=== PATIENT | female | born 1975 | race Caucasian/White ===

== ENCOUNTER 2022-02-03 18:41 | Outpatient (REF) | payer OTHER, SELFPAY ==
[2022-02-03 14:02] LABS: Abs Immature Grans 0.09 10^3/uL (0.0-0.06); Absolute Basophil Count 0.05 10^3/uL (0.0-0.2); Absolute Eosinophil Count 0.12 10^3/uL (0.0-0.7); Absolute Lymphocyte Count 2.86 10^3/uL (1.2-3.4); Absolute Monocyte Count 0.65 10^3/uL (0.1-0.8); Basophils % 0.4; Eosinophils % 1.1; HCT 40.8 % (36.0-46.0); HGB 13.9 g/dL (11.2-15.7); Immature Grans % 0.8; Lymphocytes % 25.2; MCH 30.5 pg (27.0-33.0); MCHC 34.1 % (32.0-36.0); MCV 90 fL (80-95); MPV 9.4 fL (8.0-11.0); Monocytes % 5.7; Neutrophils % 66.8; Platelet Count 288 10^3/uL (130-400); RBC 4.55 10^6/uL (3.93-5.22); RDW 11.9 % (11.7-14.6); RDW-SD 38.4 fL; WBC 11.33 10^3/uL (4.4-10.8)
[2022-02-03 14:05] LABS: Absolute Neutrophil Count 7.57 10^3/uL (1.2-6.7)
[2022-02-03 14:24] LABS: ALT 35 U/L (14-59); AST 21 U/L (15-37); Albumin 4.2 g/dL (3.4-5.0); Alkaline Phosphatase 54 U/L (46-116); Anion Gap 8.9 mmol/L (3-11); BUN 13 mg/dL (7-18); Bilirubin, Total 0.5 mg/dL (0.2-1.0); CO2 27.1 mmol/L (21.0-32.0); CREATININE 0.9 mg/dL (0.55-1.02); Calcium 8.9 mg/dL (8.5-10.1); Calculated LDL 132 mg/dL (<100); Chloride 106 mmol/L (98-107); Cholesterol 200 mg/dL (<200); Glucose 89 mg/dL (74-106); HDL Cholesterol 38 mg/dL (40-60); Potassium 4.2 mmol/L (3.5-5.1); Sodium 142 mmol/L (136-145); TSH (W/Ref FT4) 1.44 uIU/mL (0.36-3.74); Total Protein 7.2 g/dL (6.4-8.2); Triglyceride 151 mg/dL (<150)
== END 2022-02-03 18:42 | disposition home or self-care (01) ==
LOC: NCHCN 18:41
PROVIDERS: PCP Nurse Practitioner Family; Visit Provider Nurse Practitioner Family
DX: Z00.00 Encounter for general adult medical examination without abnormal findings (principal); F33.1 Major depressive disorder, recurrent, moderate; R53.82 Chronic fatigue, unspecified; Z13.220 Encounter for screening for lipoid disorders
CPT/HCPCS: 80053; 80061; 84443; 85025

== ENCOUNTER 2022-08-09 06:10 | Day surgery (SDC) | payer OTHER, SELFPAY ==
[2022-08-09 06:21] VITALS: BP 116/74; PULSE 85; RESP 16; TEMP 36.6; O2SAT 100
--- NOTE | 2022-08-09 07:23 | W.PM.DSUDISC ---
Date of service: 08/09/22 Time of Service: 10:00 Discharge Plan Disposition Patient Disposition: HOME Condition: Good Discharge Details Reason For Visit: Right Trigger Thumb Release Attending Provider: Elian Jacobo Primary Care Provider: CARMEN HORN Home Meds and New Rx's Prescriptions: New hydrocodone-acetaminophen 5-325 mg tablet 1 tab PO Q6H PRNQty: 5 0RF ibuprofen 600 mg tablet 600 mg PO TID Qty: 20 0RF acetaminophen 500 mg capsule 1,000 mg PO Q8H PRN PRNQty: 20 0RF Continued bupropion HCl [Wellbutrin XL] 300 mg tablet extended release 24 hr 300 mg PO QAM vitamin B complex Capsule 2 cap PO DAILY metoprolol succinate 25 mg tablet extended release 24 hr 25 mg PO QPM cholecalciferol (vitamin D3) 50 mcg (2,000 unit) capsule 50 mcg PO DAILY methylphenidate HCl [Concerta] 54 mg tablet extended release 24hr 54 mg PO QAM alprazolam [Xanax] 1 mg tablet 1 mg PO DAILY PRN pantoprazole 40 mg tablet,delayed release (DR/EC) 40 mg PO DAILY lamotrigine 150 mg tablet 150 mg PO QAM levonorgestrel-ethinyl estrad 0.15-0.03 mg tablet 1 tab PO DAILY Qty: 84 5RF lamotrigine 25 mg tablet 50 mg PO QAM Label Comments: Take in addition to 150mg dose for a total of 200mg daily. Discharge Instructions Stand Alone Forms: Ary Pimentel (KEELY) Activity:: Activity as Tolerated Remove Dressings/Wound Care:: 72 hours Shower/Bathe:: 72 hours Diet:: As Tolerated Discharge Orders Discharge Orders: Discharge Order (Routine); Ordered 08/09/22 Ordered By: Irma Richter Discharge Data Discharge Date/Time-TO BE ENTERED AT DEPARTURE: 08/09/22 08:05 Discharge Comment: pt d/c from [facility] DS: Diagnosis Discharge Diagnosis (1) Trigger finger of right thumb: Status: Acute
[2022-08-09] MEDS: Sodium Bicarbonate 50 MEQ/50 ML VIAL (07:39)
[2022-08-09 07:47] VITALS: BP 140/68; PULSE 84; RESP 16; TEMP 36; O2SAT 99
--- NOTE | 2022-08-09 20:40 | W.PM.OP ---
Date of service: 08/09/22 Time of Service: 07:40 Operative Note Operative Note DATE OF PROCEDURE: 08/09/22 PRE-OP DIAGNOSIS: Right Trigger Thumb POST-OP DIAGNOSIS: same PROCEDURE: Trigger Finger Release - Right Thumb SURGEON: Elian Jacobo ANESTHESIA TYPE: Local By Surgeon Refer to Anesthesia Record ESTIMATED BLOOD LOSS: 0 PATHOLOGY: none sent COMPLICATIONS: None Patient was transported to: same day Patient's condition: stable Indications: I have seen Chantelle in clinic for symptoms of a trigger finger. The catching, clicking, locking, and pain limited function. The diagnosis of trigger finger was evident. The symptoms had not responded to conservative measures including an injection. I discussed trigger finger release with the patient. I reviewed the risks of the procedure to include, but not limited to, bleeding, infection, pain, stiffness, incomplete release, damage to nerves or vessels, continued catching, recurrence. Despite these risks, the patient elected to proceed. Findings: There was a tightened A1 philip which was released. The flexor tendons were inspected and the patient was able to move the finger without any catching, clicking, or locking. Procedure Description: Chantelle was greeted in the preoperative holding area where the correct side was identified and marked. The consent was reviewed with the patient and signed. All questions were answered. She was taken back to the operating room. The patient was placed into the supine position on the operating room table with the right arm on an arm board. All bony prominences were well padded. No prophylactic antibiotics were administered since this was a clean, elective hand surgical case. The right arm was then prepped with Chloraprep and draped in a standard fashion with stockinette and extremity drape. A timeout to confirm correct identity, side and site, procedure, allergies, anesthesia, and medical concerns was performed. The surgical site was marked as a longitudinal incision directly over the A1 philip of the involved digit. This was confirmed with palpation during finger flexion. This area, overlying the metacarpal head, was then anesthetized with 1% Lidocaine. The patient tolerated this well and once the anesthetic had setup, the procedure began. A longitudinal incision was made through skin only, approximately 1cm. The deep tissues were dissected bluntly. Once the A1 philip and flexor tendons were identified the soft tissue including neurovascular structures were retracted medially and laterally. There were no crossing structures over the A1 philip. The proximal edge of the philip was identified and the philip was incised with tenotomy scissors. There was a release of the tendons once this was fully released. The tendons were then removed from the wound and inspected. Excess synovium was resected. The tendons were then returned and the patient was asked to move the finger into deep flexion and back to extension. There was no recreation of the pre-operative symptoms. The hand was then once more inspected for any A0 philip or area of possible constriction. The wound was then irrigated and the skin was closed with a 4-0 Nylon. This was dressed with gauze and a Conform dressing. The patient tolerated the procedure well and was returned to the Same Day Surgery area in a stable condition suffering no known complication.
== END 2022-08-09 08:05 | disposition home or self-care (01) ==
PROVIDERS: PCP Nurse Practitioner Family; Visit Provider Student in an Organized Health Care Education/Training Program
PROC: (CPT 26055; principal; 2022-08-09 07:30)
DX: M65.311 Trigger thumb, right thumb (principal)
CPT/HCPCS: 26055

== ENCOUNTER 2023-03-20 21:37 | Outpatient (REF) | payer OTHER, SELFPAY ==
[2023-03-20 20:32] LABS: Abs Immature Grans 0.07 10^3/uL (0.0-0.06); Absolute Basophil Count 0.07 10^3/uL (0.0-0.2); Absolute Lymphocyte Count 3.53 10^3/uL (1.2-3.4); Absolute Neutrophil Count 9.84 10^3/uL (1.2-6.7); Basophils % 0.5; Eosinophils % 0.8; HCT 39.5 % (36.0-46.0); HGB 13.5 g/dL (11.2-15.7); Immature Grans % 0.5; Lymphocytes % 24.7; MCHC 34.2 % (32.0-36.0); MCV 88 fL (80-95); MPV 9.6 fL (8.0-11.0); Monocytes % 4.6; Neutrophils % 68.9; Platelet Count 344 10^3/uL (130-400); RDW 11.8 % (11.7-14.6); RDW-SD 37.5 fL; WBC 14.28 10^3/uL (4.4-10.8)
[2023-03-20 20:35] LABS: Absolute Eosinophil Count 0.11 10^3/uL (0.0-0.7); Absolute Monocyte Count 0.66 10^3/uL (0.1-0.8)
[2023-03-20 21:06] LABS: Vitamin D 25 Total 93.1 ng/mL (30-100)
[2023-03-20 21:07] LABS: ALT 44 U/L (14-59); AST 23 U/L (15-37); Alkaline Phosphatase 45 U/L (46-116); Anion Gap 7.6 mmol/L (3-11); BUN 14 mg/dL (7-18); Bilirubin, Total 0.1 mg/dL (0.2-1.0); CO2 26.4 mmol/L (21.0-32.0); CREATININE 0.9 mg/dL (0.55-1.02); Calcium 8.9 mg/dL (8.5-10.1); Calculated LDL 111 mg/dL (<100); Chloride 107 mmol/L (98-107); Cholesterol 181 mg/dL (<200); Estimated GFR 79.35 (mL/min/1.73m2); Glucose 89 mg/dL (74-106); HDL Cholesterol 31 mg/dL (40-60); Sodium 141 mmol/L (136-145); Total Protein 7.2 g/dL (6.4-8.2); Triglyceride 197 mg/dL (<150); Vitamin B12 399 pg/mL (193-986)
== END 2023-03-20 21:38 | disposition home or self-care (01) ==
LOC: NCHCN 21:37
PROVIDERS: PCP Nurse Practitioner Family; Visit Provider Nurse Practitioner Family
DX: F90.9 Attention-deficit hyperactivity disorder, unspecified type (principal); F33.1 Major depressive disorder, recurrent, moderate; E78.5 Hyperlipidemia, unspecified; R53.82 Chronic fatigue, unspecified
CPT/HCPCS: 80053; 80061; 82306; 82607; 85025

== ENCOUNTER 2023-09-06 13:38 | Outpatient (REF) | payer OTHER, SELFPAY ==
--- NOTE | 2023-09-06 13:30 | SKI_PTH ---
PATIENT: Chantelle Leal LOC: [facility] U#:[id number] AGE/SX: 48/F ROOM: RE09/06/[address]: Benjamin Lopez MD : 1975 BED: DIS: 09/06/2023 SPEC #: [id number] RECD: 09/06/23 17:12 STATUS: AMINA RE #: [id number] ROWAN: 09/06/23 13:[address]: Benjamin Lopez DEPT: Surgical Specimen RECD BY: Regina Camarena ENTERED: 09/06/23 17:13 SP TYPE: ONESIMO JETT DR: CARMEN HORN, CHILO Tissues: 1 - SKIN BIOPSY(SHAVE/PUNCH) Procedures: IMMUNOPEROXIDASE STAIN SKIN LEVEL 4 Comments: [id number]
== END 2023-09-06 13:39 | disposition home or self-care (01) ==
LOC: LBN 13:38
PROVIDERS: PCP Nurse Practitioner Family; Visit Provider Surgery
DX: D22.39 Melanocytic nevi of other parts of face
CPT/HCPCS: 88305; 88361

== ENCOUNTER → 2023-12-04 01:41 | Outpatient (CLI) | payer OTHER, SELFPAY ==
--- NOTE | 2023-12-04 | DI.MAMMO_ITS ---
Exam(s) MAMMO SCREENING EXAM: MAMMO SCREENING CLINICAL HISTORY: Z12.39 Encounter for other screening for malig neop of breast TECHNIQUE: Bilateral full field digital CC and MLO mammographic images were obtained with 3D tomosyn thesis and utilizing computer aided detection (CAD). COMPARISON: Available for comparison. FINDINGS: Masses/Architectural Distortion: There is a stable nodule which is seen in the posterior aspect of th e right breast on the CC view and inferior posterior aspect aspect on the MLO view. No new nodules a re seen. There are no areas of architectural distortion. Microcalcifications: No suspicious pleomorphic-type are seen. Skin Thickening/Nipple Retraction: None. IMPRESSION: 1. No significant interval change with no specific features of malignancy noted. 2. Unless there is more urgent need, screening mammography is recommended, as per [employer] guidelines. BI-RADS Category 2 - Benign Findings Breast Density - Category B - Scattered areas of fibroglandular density Breast density category C or D implies that the patient has dense breast tissue. Dense breast tissue is very common and is not abnormal but dense breast tissue can make it harder to find cancer on a ma mmogram. Also, dense breast tissue may increase their breast cancer risk. This information about the result of the mammogram report was provided to the patient to raise their awareness. Use this report when you speak with the patient about their risks for breast cancer, which includes their family hist ory. At that time, you may recommend for more screening tests (Ultrasound or MRI) as they might be us eful based on their risk. A negative radiographic report should not delay biopsy if a dominant or clinically suspicious mass is present. Up to ten percent of cancers are not identified on mammography. A negative report may reinforce clinical impression. Adenosis and dense breasts may obscure an underlying neoplasm. False positive reports average 6 to 10%. Patient will receive a letter notifying them of these results.
== END ==
PROVIDERS: PCP Nurse Practitioner Family; Visit Provider Nurse Practitioner Family
DX: Z12.31 Encounter for screening mammogram for malignant neoplasm of breast (principal)
CPT/HCPCS: 77063; 77067

== ENCOUNTER 2024-02-08 07:41 | Day surgery (SDC) | payer OTHER, SELFPAY ==
--- NOTE | 2024-02-07 17:05 | PDOC.DSDIS_ITS ---
Date of service: 02/08/24 Time of Service: 09:21 Discharge Plan Disposition Patient Disposition: Home Condition: Good Discharge Details Reason For Visit: Hemorrhoid banding Attending Provider: Benjamin Lopez Primary Care Provider: Arcadio Molina Home Meds and New Rx's Prescriptions: Continued sertraline 100 mg tablet 100 mg PO DAILY lidocaine 5 % adhesive patch,medicated 1 patch topical Q24H Qty: 30 1RF Rx Instructions: leave on most painful area for up to 12 hrs lisdexamfetamine [Vyvanse] 30 mg capsule 30 mg PO QAM bupropion HCl [Wellbutrin XL] 300 mg tablet extended release 24 hr 300 mg PO QAM vitamin B complex Capsule 2 cap PO DAILY metoprolol succinate 25 mg tablet extended release 24 hr 25 mg PO DAILY cholecalciferol (vitamin D3) 50 mcg (2,000 unit) capsule 50 mcg PO DAILY alprazolam [Xanax] 1 mg tablet 1 mg PO DAILY PRN pantoprazole 40 mg tablet,delayed release (DR/EC) 40 mg PO DAILY levonorgestrel-ethinyl estrad 0.15-0.03 mg tablet 1 tab PO DAILY Qty: 84 5RF omega-3 fatty acids 1,000 mg capsule 1,000 mg PO DAILY pyridoxine (vitamin B6) 200 mg tablet 200 mg PO BID turmeric root extract 500 mg tablet 500 mg PO DAILY ibuprofen 600 mg tablet 600 mg PO TID Qty: 20 0RF acetaminophen 500 mg capsule 1,000 mg PO Q8H PRN PRNQty: 20 0RF lamotrigine 200 mg tablet 200 mg PO HS Discharge Instructions Instructions: Anal Fissure (DC) Additional Instructions: Chantelle, we able to complete the procedure today without any difficulty. I banded 2 medium sized internal hemorrhoids. Incidentally, there is also signs of a small fissure around your anus, which I suspect is contributing to a significant amount of your discomfort. The fissure is a small tear in the skin overlying the muscles. They are generally quite painful. I have gone ahead and put a prescription in for an ointment that should help to heal this. Unfortunately, the only pharmacy in the area that will make the appointment is the [facility] pharmacy in [facility]. I already called the prescription in. I would encourage you to get it as soon as possible because I do think that it will help with some, but it is not an emergency. They generally call the patient's once the prescription is prepared. Please follow the instructions below to help maximize pain control during the recovery. I would encourage you to use MiraLAX, or psyllium (such as Metamucil) to help ensure soft and regular bowel movements. I look forward to seeing you in the office, and if you have any questions in the meantime, please do not hesitate to ask at any point. 1. Resume all of your regular medications. 2. Obtain 2% diltiazem ointment from [facility] pharmacy in [facility] ([phone]).? Apply a pea-sized dab of ointment to the anus twice daily, and before and after each bowel movement. 3. Obtain a sitz bath from any pharmacy. Soak for 10-15 minutes in warm water, warm water mixed with half a cup of baking soda, or Epson salts after each bowel movement, or up to 5 times per day as needed for pain. 4. Okay to use tylenol and ibuprofen over the counter as needed. I provided a prescription for tramadol if needed for more severe pain 5. Leave bandage in place for 24 hours, then remove. 6. Shower with warm soapy water. Pat dry. Use a bandaid if needed to protect your clothing. 7. No soaking or tub baths until I see you in the office. 8. No heavy lifting until I see you in the office. 9.Call the office (or go directly to the emergency room after hours) if you notice any of the following: ? Develop chills (warm to touch), or if you have a thermomete and your temperature is above 101 ? Difficulty breathing or difficultly swallowing ? Persistent vomiting ? Any bleeding ? exceeding one tablespoon 10. Call your physician if the site where your intravenous was started becomes red, swollen, painful, and warm to touch. Referrals: Benjamin Lopez MD [ [facility] STAFF PHYSICIAN] - Activity:: Activity as Tolerated Diet:: As Tolerated Discharge Orders Discharge Orders: Discharge Order (Routine); Ordered 02/07/24 Ordered By: Benjamin Lopez DS: Diagnosis Discharge Diagnosis (1) Hemorrhoids: Status: Acute Asessment and Plan: Follow-up office visit 10 to 14 days
[2024-02-08 07:52] VITALS: BP 142/67; PULSE 84; RESP 20; TEMP 36.6; O2SAT 100
--- NOTE | 2024-02-08 08:01 | W.ANESPRE ---
General Info Date of Service Date Performed: 02/08/24 Height: 5 ft 3 in Weight: 83.7 kg Body Mass Index (BMI): 32.6 Surgical Procedure: Operation Date: 02/08/24 09:25 Proposed Procedure Side Surgeon p Hemorrhoidectomy by Banding Benjamin Lopez MD Meds Allergies and Home Medications Allergies Allergy/AdvReac Type Severity Reaction Status Date / Time buspirone Allergy Nausea, Verified 02/08/24 07:58 chest pain, brain jolts eggplant Allergy mouth itchy Verified 02/08/24 07:58 aripiprazole [From Abilify] AdvReac Intermediate Other (See Verified 02/08/24 07:58 Comment) CBD Oil Allergy Anxiety, Uncoded 02/08/24 07:58 panic attack Pollens Allergy sneezing Uncoded 02/08/24 07:58 Home Medication Medication Instructions Recorded alprazolam 1 mg tablet (Xanax) 1 mg PO DAILY PRN 02/02/22 bupropion HCl 300 mg 24 hr tablet, 300 mg PO QAM 02/02/22 extended release (Wellbutrin XL) cholecalciferol (vitamin D3) 50 50 mcg PO DAILY 02/02/22 mcg (2,000 unit) capsule metoprolol succinate 25 mg 25 mg PO DAILY 02/02/22 tablet,extended release 24 hr pantoprazole 40 mg tablet,delayed 40 mg PO DAILY 02/02/22 release vitamin B complex 2 cap PO DAILY 02/02/22 acetaminophen 500 mg capsule 1,000 mg (2 x 500 mg) PO Q8H PRN 08/09/22 PRN #20 caps ibuprofen 600 mg tablet 600 mg PO TID #20 tabs 08/09/22 sertraline 100 mg tablet 100 mg PO DAILY 02/19/23 lidocaine 5 % topical patch 1 patch topical Q24H #30 ea 05/02/23 levonorgestrel 0.15 mg-ethinyl 1 tab PO DAILY #84 tabs 05/09/23 estradiol 0.03 mg tablet lisdexamfetamine 30 mg capsule 30 mg PO QAM 09/06/23 (Vyvanse) omega-3 fatty acids 1,000 mg 1,000 mg PO DAILY 01/07/24 capsule pyridoxine (vitamin B6) 200 mg 200 mg PO BID 01/07/24 tablet turmeric root extract 500 mg tablet 500 mg PO DAILY 01/07/24 lamotrigine 200 mg tablet 200 mg PO HS 02/06/24 Current Visit Medications: Current Medications Generic Name Dose Route Start Last Admin Trade Name Yinka PRN Reason Stop Dose Admin Acetaminophen 1,000 mg 02/08/24 06:00 Acetaminophen 500 Mg Tab PO 02/08/24 16:00 PREOP ELVIS Celecoxib 200 mg 02/08/24 06:00 Celecoxib 200 Mg Cap PO 02/08/24 16:00 PREOP ELVIS Gabapentin 600 mg 02/08/24 06:00 Gabapentin 300 Mg Cap PO 02/08/24 16:00 PREOP [facility] Ringer's Solution 1,000 mls @ 80 mls/hr 02/08/24 06:00 IV 03/08/24 23:59 INFUSION [facility] IV Miscellaneous Supplies 1 each 02/08/24 06:00 Iv Access IV 03/08/24 23:59 DIRECTED ELVIS Sodium Biphosphate/Sodium Phosphate 266 ml 02/08/24 06:00 Na Phosphate Enema 133 Ml Btl KS 02/08/24 16:00 PREOP [facility] Sodium Chloride 0 ml 02/08/24 06:00 Normal Saline Flush 10 Ml Syr IV 03/08/24 23:59 PRN PRN Sodium Chloride 0 ml 02/08/24 06:00 Normal Saline 10 Ml Vial IJ 03/08/24 23:59 DIRECTED PRN Sterile Water 0 ml 02/08/24 06:00 Water,Injection,Sterile 10 Ml Vial IJ 03/08/24 23:59 DIRECTED PRN Tramadol HCl 50 mg 02/07/24 17:07 Tramadol 50 Mg Tab PO 03/08/24 17:06 Q6H PRN PRN Pain PFSH Active Problems Active Problems: Problem Status Onset Code Hemorrhoids K64.9 Skin lesion L98.9 Conductive hearing loss in left ear H90.12 Acute serous otitis media, left ear H65.02 Lumbar back pain with radiculopathy affecting right lower extremity M54.16 Capsulitis M77.9 Metatarsalgia M77.40 Bunion M21.619 Abnormal auditory perception of both ears H93.293 Hand pain, right M79.641 Perimenopausal N95.1 Premenstrual dysphoria F32.81 Vertigo R42 Medical History Medical History Headache Chronic low back pain Rotator cuff tendonitis Plantar fasciitis GERD (gastroesophageal reflux disease) Resting tremor Neck pain Obsessive compulsive disorder Attention deficit hyperactivity disorder Carpal tunnel syndrome, bilateral upper limbs Calcaneal spur of left foot Panic disorder Melanocytic nevus PTSD (post-traumatic stress disorder) Per pt. states no potential tirggers Bilateral tinnitus Chronic fatigue syndrome Hand pain Palpitations Dental caries Hyperaldosteronism Moderate recurrent major depression Medical History Comments:: Pt is a Jehovahs Witness, No blood products Surgical History Surgical History Trigger finger of right thumb S/P Release: 08/09/2022 Hx of carpal tunnel repair Hx of section Tobacco Smoking/Tobacco Use Status: Never Alcohol Alcohol Intake: current Alcohol intake frequency: a few times a week Alcohol type: beer Substance Use Substance use: Never Substance use type: does not use Prental History History 3 Para Hx # Term Pregnancies 2 Multiple births Hx # Pregnancies Ectopic pregnancies 1 AB induced Hx Number of Living Children 2 AB spontaneous Past Pregnancies Del. Date GA/Weeks # Preg Succ Route Wgt Sex Labor Lgth Anesthesia Location Prov Compl 03/25/05 40 No 4082.331 g Male [place], [place] 05/19/08 40 No 3543.69 g Female [place], [place] Vital Signs and Lab Results Vital Signs Most Recent Vital Signs in EMR: Most Recent Vital Signs Temp Pulse Resp BP Pulse Ox 36.6 C 84 20 142/67 H 100 02/08/24 07:52 02/08/24 07:52 02/08/24 07:52 02/08/24 07:52 02/08/24 07:52 Lab Results Blood Type / Crossmatch: No Data to Display Complete Blood Count: No Data to Display Complete Metabolic Panel: No Data to Display Liver Function Panel: No Data to Display Coagulation Panel: No Data to Display Cardiac Panel: No Data to Display Arterial Blood Gas: No Data to Display Venous Blood Gas: No Data to Display Pancreas Panel: No Data to Display Thyroid Panel: No Data to Display Infectious Disease: No Data to Display Blood Cultures: No Data to Display Toxicology Panel: No Data to Display Panel: No Data to Display Anesthesia Assessment and Plan Anesthesia History Personal History: No History of Anesthesia Complications Family History: No Family History of Anesthesia Complications Exercise Tolerance Exercise Tolerance: Metabolic Equivalents>4 Pertinent Negatives Pertinent Negatives: No Symptoms of GERD Cardiac & Pulmonary Exam Cardiac Exam: Normal S1/S2 Heart Sounds Pulmonary Exam: Clear Bilateral Breath Sounds Implantable Cardiac Device Does patient have a Pacemaker or an ICD?: No Airway Exam Known Difficult Airway: No Mallampati Class: 2 Mouth Opening: Normal (> 3cm) Thyromental Distance: Greater than 3 cm Neck Range of Motion: Full ROM Neck Circumference: Normal Teeth Condition: Normal Dentition ASA Classification ASA Score: ASA 2 Emergency Case?: No NPO Status NPO Status: NPO Clears >2 hours, Solids >8 hours Status Status: Negative HCG Anesthesia Plan Resuscitation Status: Full Code Anesthesia Technique: General Anesthesia Airway Planned: Natural Airway Monitors Used: Standard Monitors
[2024-02-08] MEDS: Gabapentin 300 MG CAP 600 MG PO (08:03)
[2024-02-08] MEDS: Acetaminophen 500 MG TAB 1000 MG PO (08:03)
[2024-02-08] MEDS: Celecoxib 200 MG CAP PO (08:04)
[2024-02-08 08:34] VITALS: BMI 32.6
[2024-02-08] MEDS: Lactated Ringers 1,000 ML 80 ML IV (08:42)
[2024-02-08] MEDS: Bupivacaine LIPOSOME/PF 133 MG/10 ML VIAL IJ (09:06)
[2024-02-08] MEDS: Bupivacaine 0.5% Pres-Free W/EPI 10 ML VIAL (09:06)
[2024-02-08 09:19] VITALS: BP 99/45; PULSE 78; RESP 16; TEMP 36.3; O2SAT 96
--- NOTE | 2024-02-08 09:26 | W.PM.OP ---
Date of service: 02/08/24 Time of Service: 09:26 Operative Note Operative Note DATE OF PROCEDURE: 02/08/24 PRE-OP DIAGNOSIS: Internal hemorrhoids POST-OP DIAGNOSIS: other (Internal hemorrhoids with posterior anal fissure) PROCEDURE: Anorectal exam under anesthesia with suction banding of right anterior and posterior columns SURGEON: Benjamin Lopez ANESTHESIA TYPE: Local By Surgeon and General:No Airway Refer to Anesthesia Record ESTIMATED BLOOD LOSS: 0 PATHOLOGY: none sent COMPLICATIONS: None Patient was transported to: PACU Patient's condition: stable Indications: Chantelle is a 48-year-old woman with longstanding internal hemorrhoids. She developed increasing amount of perianal discomfort associated with hemorrhoids. Findings: Grade 2 internal hemorrhoids of the right anterior and posterior columns, posterior anal fissure Procedure Description: Elise was brought into the operating room, and a routine preprocedure timeout was conducted. Next, she was assisted to the left lateral decubitus position, and great care was taken to support and pad her appropriately. Next, general anesthesia was induced. I began within external anorectal exam. Largely the skin and perineum were normal. There is a small posterior midline anal fissure. There are no signs of recent bleeding. The surrounding tissue is normal and healthy. I then established a generous field block using combination of Exparel as well as local anesthetic. Next, I performed a digital rectal exam. No masses were appreciated. Next, using a fiberoptic lit anoscope, the anal column and distal rectum were carefully examined. There were grade 2 internal hemorrhoids, mostly involving the right anterior and right posterior columns. Otherwise exam was normal. Next, using suction rubber band control, the right anterior, right posterior column were ligated. The anoscope was then removed, and the patient was allowed awaken from the anesthetic and transferred to the recovery unit
--- NOTE | 2024-02-08 09:35 | W.ANESPOSTOP ---
Postoperative Evaluation Date, Time and Location Date Performed: 02/08/24 Time Performed: 09:35 Patient Location: Day Surgery Unit Vital Signs Most Recent Imported Vital Signs: Most Recent Vital Signs Temp Pulse Resp BP Pulse Ox 36.3 C L 78 16 99/45 L 96 02/08/24 09:19 02/08/24 09:19 02/08/24 09:19 02/08/24 09:19 02/08/24 09:19 Pain Score Most Recent Pain Score: Most Recent Pain Score Pain Level 0 02/08/24 07:52 Assessment Mental Status: Awake (Alert & Oriented to Patient Baseline) Airway and Respiratory Function: Patent airway with normal (patient baseline) respiratory exam Cardiovascular Function: Hemodynamically Stable Hydration Status: Adequately Hydrated Nausea & Vomiting: No Nausea or Vomiting Pain: Pt. Denies Any Pain Peripheral Nerve Block: Patient did not receive a nerve block
[2024-02-08 09:51] VITALS: BP 115/61; PULSE 87; RESP 16; TEMP 37; O2SAT 100
== END 2024-02-08 11:02 | disposition home or self-care (01) ==
LOC: SUR 07:42
PROVIDERS: PCP Physician Assistant; Visit Provider Surgery
PROC: (CPT 46221; principal; 2024-02-08 09:15)
DX: K64.1 Second degree hemorrhoids (principal)
CPT/HCPCS: 46221; 81025; C9290; J1100; J1885; J2001; J2250; J2704

== ENCOUNTER → 2024-05-07 15:53 | Outpatient (CLI) | payer OTHER, SELFPAY ==
--- NOTE | 2024-05-07 15:46 | DI.RAD_ITS ---
Exam(s) XR SHOULDER RT COMPLETE 2+V EXAM: XR SHOULDER RT COMPLETE 2+V CLINICAL HISTORY: M25.511 Pain RT shoulder, with impingement. TECHNIQUE: 2D digital imaging was performed. Five views. COMPARISON: No exams were available for comparison FINDINGS: BONES: No acute fracture is present. No bony destructive lesion is seen. Minimal spurring at the und ersurface of the acromion JOINTS: No dislocation present. Minimal spurring at the AC joint. SOFT TISSUE: Normal. IMPRESSION: Minimal degenerative changes. DATA REPOSITORY: RADIATION DOSE DELIVERED:
== END ==
PROVIDERS: PCP Physician Assistant; Visit Provider Physician Assistant
DX: M25.511 Pain in right shoulder (principal); M19.011 Primary osteoarthritis, right shoulder
CPT/HCPCS: 73030

== ENCOUNTER 2024-05-21 07:31 | Outpatient (CLI) | payer OTHER, SELFPAY ==
[2024-05-21 07:55] LABS: ALT 36 U/L (14-59); AST 19 U/L (15-37); Albumin 3.7 g/dL (3.4-5.0); Alkaline Phosphatase 44 U/L (46-116); Anion Gap 7.8 mmol/L (3-11); BUN 13 mg/dL (7-18); CO2 29.2 mmol/L (21.0-32.0); Calcium 8.8 mg/dL (8.5-10.1); Calculated LDL 110 mg/dL (<100); Chloride 106 mmol/L (98-107); Cholesterol 169 mg/dL (<200); Estimated GFR 69.49 (mL/min/1.73m2); Glucose 101 mg/dL (74-106); HDL Cholesterol 39 mg/dL (40-60); Potassium 3.8 mmol/L (3.5-5.1); Sodium 143 mmol/L (136-145); Total Protein 6.9 g/dL (6.4-8.2); Triglyceride 101 mg/dL (<150); Vitamin D 25 Total 84.7 ng/mL (30-100)
== END 2024-05-21 07:32 | disposition home or self-care (01) ==
LOC: LBO 07:32
PROVIDERS: PCP Physician Assistant; Visit Provider Physician Assistant
DX: E78.5 Hyperlipidemia, unspecified (principal); E55.9 Vitamin D deficiency, unspecified
CPT/HCPCS: 36415; 80053; 80061; 82306

== ENCOUNTER 2025-01-06 12:32 | Outpatient (REF) | payer OTHER, SELFPAY ==
[2025-01-06 19:38] LABS: HCT 39.9 % (36.0-46.0); HGB 13.2 g/dL (11.2-15.7); MCH 29.3 pg (27.0-33.0); MCHC 33.1 % (32.0-36.0); MCV 89 fL (80-95); MPV 9.2 fL (8.0-11.0); Platelet Count 295 10^3/uL (130-400); RBC 4.51 10^6/uL (3.93-5.22); RDW 11.9 % (11.7-14.6); RDW-SD 38.8 fL; WBC 11.07 10^3/uL (4.4-10.8)
== END 2025-01-06 12:33 | disposition home or self-care (01) ==
LOC: NCHCN 12:32
PROVIDERS: PCP Physician Assistant; Visit Provider Physician Assistant
DX: K21.9 Gastro-esophageal reflux disease without esophagitis (principal)
CPT/HCPCS: 85027

== ENCOUNTER 2025-05-13 07:19 | Outpatient (CLI) | payer OTHER, SELFPAY ==
[2025-05-13 08:01] LABS: Abs Immature Grans 0.04 10^3/uL (0.0-0.06); HCT 38.0 % (36.0-46.0); HGB 12.7 g/dL (11.2-15.7); Immature Grans % 0.5 %; MCH 29.4 pg (27.0-33.0); MCHC 33.4 % (32.0-36.0); MCV 88 fL (80-95); MPV 8.9 fL (8.0-11.0); Platelet Count 283 10^3/uL (130-400); RBC 4.32 10^6/uL (3.93-5.22); RDW 11.7 % (11.7-14.6); RDW-SD 37.5 fL; WBC 7.95 10^3/uL (4.4-10.8)
[2025-05-13 08:37] LABS: ALT 24 U/L (14-59); AST 17 U/L (15-37); Albumin 3.6 g/dL (3.4-5.0); Alkaline Phosphatase 44 U/L (46-116); Anion Gap 8.0 mmol/L (3-11); BUN 13 mg/dL (7-18); Bilirubin, Total 0.2 mg/dL (0.2-1.0); CO2 26.0 mmol/L (21.0-32.0); Calcium 8.7 mg/dL (8.5-10.1); Calculated LDL 101 mg/dL (<100); Chloride 108 mmol/L (98-107); Cholesterol 170 mg/dL (<200); Estimated GFR 78.37 (mL/min/1.73m2); Glucose 97 mg/dL (74-106); HDL Cholesterol 33 mg/dL (>or=50); Magnesium 2.1 mg/dL (1.8-2.4); Potassium 4.1 mmol/L (3.5-5.1); Sodium 142 mmol/L (136-145); TSH 1.47 uIU/mL (0.36-3.74); Total Protein 6.8 g/dL (6.4-8.2); Triglyceride 180 mg/dL (<150); Vitamin B12 376 pg/mL (193-986); Vitamin D 25 Total 91 ng/mL (30-100)
== END 2025-05-13 07:20 | disposition home or self-care (01) ==
LOC: LBO 07:20
PROVIDERS: PCP Physician Assistant; Visit Provider Nurse Practitioner Psychiatric/Mental Health
DX: F32.9 Major depressive disorder, single episode, unspecified (principal); Z51.81 Encounter for therapeutic drug level monitoring
CPT/HCPCS: 36415; 80053; 80061; 82306; 82607; 83735; 84443; 85025

== ENCOUNTER 2025-06-11 10:58 | Outpatient (CLI) | payer OTHER, SELFPAY ==
--- NOTE | 2025-06-11 15:32 | DI.MAMMO_ITS ---
Exam(s) MAMMO SCREENING EXAM: MAMMO SCREENING CLINICAL HISTORY: screening,Z12.39 TECHNIQUE: Mammograms were interpreted according to the usual protocol including computer analysis with CAD system, tomosynthesis and C-view imaging. COMPARISON: 2017 through 2023 FINDINGS: The breasts are composed of scattered fibroglandular densities, Breast Density category B. No suspicious masses or suspicious microcalcifications are seen. There is a in the central inferior right breast. No skin thickening or abnormal axillary lymph nodes are seen. There has been no significant change from prior exams. IMPRESSION: BI-RADS Category 2 - Benign Findings Yearly screening mammography is recommended. Breast Density - Category B - There are scattered areas of fibroglandular density. Breast density Category C or D implies that the patient has dense breast tissue. Dense breast tissue can make it harder to find cancer on a mammogram. Dense breast tissue is also associated with an increased risk of breast cancer. This information about the result of the mammogram report was provided to the patient to raise their awareness. Use this report when you speak with the patient about their risks for breast cancer, which includes their family history. At that time, you may recommend additional screening tests (Ultrasound or MRI) as these tests may add significant information. A negative radiographic report should not delay biopsy if a dominant or clinically suspicious mass is present. Up to ten percent of cancers are not identified on mammography. A negative report may reinforce clinical impression. Adenosis and dense breasts may obscure an underlying neoplasm. False positive reports average 6 to 10%. Patient will receive a letter notifying them of these results.
== END 2025-06-11 11:18 ==
LOC: DI 10:59
PROVIDERS: PCP Physician Assistant; Visit Provider Physician Assistant
DX: Z12.31 Encounter for screening mammogram for malignant neoplasm of breast (principal); R92.323 Mammographic fibroglandular density, bilateral breasts
CPT/HCPCS: 77063; 77067